=== PATIENT | male | born 2000 | race Caucasian/White ===

== ENCOUNTER 2019-12-22 13:26 | Emergency (ER) | payer SELFPAY ==
[~2019-12-22] VITALS: Ht 167.6 cm; Wt 56.7 kg
[2019-12-23] MEDS ORDERED: PROM25S PR (11:39)
[2019-12-23] MEDS ORDERED: Omeprazole20 M1 PO (11:39)
[2019-12-23] MEDS ORDERED: ONDA4ODT MM (11:39)
[2019-12-24] MEDS ORDERED: PROM25 PO (11:06)
== END 2019-12-22 14:35 | disposition left against medical advice (07) ==
LOC: ER 13:26
DX: Z53.21 Procedure and treatment not carried out due to patient leaving prior to being seen by health care provider (principal)
CPT/HCPCS: 99283